=== PATIENT | female | born 1980 | race African-American/Black ===

== ENCOUNTER 2016-11-24 00:24 | Emergency (ER) | payer BC, OTHER ==
--- NOTE | 2016-11-24 02:51 | ER Document Report ---
ED GI/ - General Chief Complaint: Abdominal Pain Stated Complaint: ABDOMINAL PAIN Notes: Patient is a 36-year-old female that comes emergency department for chief complaint of discomfort in the vaginal region with discharge, she states that she feels like she got a yeast infection but she took 2 separate doses of Diflucan, patient was on antibiotics before taking the Diflucan. Patient is sexually active. She also states she has burning and discomfort with urination. Patient states she felt like she had chills earlier and she felt lightheaded when she stood. She denies dizziness, syncope, vomiting, flank pain. Patient has had a partial hysterectomy secondary to fibroids. TRAVEL OUTSIDE OF THE [place] IN LAST 30 DAYS: No - Related Data Allergies/Adverse Reactions: prednisone [Prednisone] Allergy (Verified 11/24/16 01:38) Sulfa (Sulfonamide Antibiotics) Allergy (Verified 11/24/16 01:38) rash around mouth Past Medical History - General Information source: Patient - Social History Smoking Status: Never Smoker Frequency of alcohol use: None Drug Abuse: None Lives with: Family Family History: Reviewed & Not Pertinent - Past Medical History Cardiac Medical History: Reports: Hx Heart Attack - 2004, Hx Hypertension Denies: Hx Atrial Fibrillation, Hx Congestive Heart Failure, Hx Coronary Artery Disease, Hx Hypercholesterolemia, Hx Peripheral Vascular Disease Neurological Medical History: Reports: Hx Cerebrovascular Accident - CVA 2014. Denies: Hx Seizures Endocrine Medical History: Renal/ Medical History: Denies: Hx Ectopic , Hx Ovarian Cysts, Hx Peritoneal Dialysis, Hx Pelvic Inflammatory Disease Malignancy Medical History: Denies: Hx Breast Cancer, Hx Cervical Cancer, Hx Leukemia, Hx Ovarian Cancer GI Medical History: Denies: Hx Crohn's Disease, Hx Gastroesophageal Reflux Disease, Hx Hiatal Hernia, Hx Irritable Bowel, Hx Liver Failure, Hx Ulcer Musculoskeltal Medical History: Denies Hx Multiple Sclerosis Skin Medical History: Denies Hx Eczema, Denies Hx MRSA Psychiatric Medical History: Denies: Hx Dementia Infectious Medical History: Denies: Hx HIV Past Surgical History: Reports: Hx Cardiac Catheterization, Hx Section - x1, Hx Hysterectomy. Denies: Hx Appendectomy, Hx Bowel Surgery, Hx Cholecystectomy, Hx Colostomy, Hx Coronary Artery Bypass Graft, Hx Gastric Bypass Surgery, Hx Herniorrhaphy, Hx Mastectomy, Hx Pacemaker, Hx Tonsillectomy , Hx Tubal Ligation - Immunizations Immunizations up to date: Yes Hx Diphtheria, Pertussis, Tetanus Vaccination: No Review of Systems - Review of Systems Constitutional: No symptoms reported EENT: No symptoms reported Cardiovascular: No symptoms reported Respiratory: No symptoms reported Gastrointestinal: No symptoms reported Genitourinary: See HPI Female Genitourinary: See HPI Musculoskeletal: No symptoms reported Skin: No symptoms reported Hematologic/Lymphatic: No symptoms reported Neurological/Psychological: No symptoms reported Physical Exam - Vital signs Vitals: Temp Pulse Resp BP Pulse Ox 98.6 F 84 18 155/86 H 99 11/24/16 05:58 11/24/16 05:58 11/24/16 05:58 11/24/16 05:58 11/24/16 05:58 Interpretation: Normal - General General appearance: Appears well, Alert In distress: None - HEENT Head: Normocephalic, Atraumatic Eyes: Normal Conjunctiva: Normal Extraocular movements intact: Yes Eyelashes: Normal Pupils: PERRL Nasal: Normal Mouth/Lips: Normal Mucous membranes: Normal Pharynx: Normal Neck: Normal - Respiratory Respiratory status: No respiratory distress Chest status: Nontender Breath sounds: Normal. No: Decreased air movement, Wheezing Chest palpation: Normal - Cardiovascular Rhythm: Regular. No: Tachycardia Heart sounds: Normal auscultation, S1 appreciated, S2 appreciated Murmur: No - Abdominal Inspection: Normal Distension: No distension Bowel sounds: Normal Tenderness: Nontender. No: Tender, Guarding Organomegaly: No organomegaly - Genitourinary External exam: Normal. No: Lesions, Laceration, Bruising, Vesicles Speculum exam: Cervix closed, Vaginal discharge - Moderate amount of whitish vaginal discharge. No: Cervix open Vaginal bleeding: None Bimanuel exam: No: Cervical motion tender - Back Back: Normal, Nontender. No: Tender, CVA tenderness - Extremities General upper extremity: Normal inspection, Nontender, Normal color, Normal ROM , Normal temperature General lower extremity: Normal inspection, Nontender, Normal color, Normal ROM , Normal temperature, Normal weight bearing. No: Bruno's sign - Neurological Neuro grossly intact: Yes Cognition: Normal Orientation: AAOx4 [place] Coma Scale Eye Opening: Spontaneous Yodit Coma Scale Verbal: Oriented Yodit Coma Scale Motor: Obeys Commands Yodit Coma Scale Total: 15 Speech: Normal Motor strength normal: LUE, RUE, LLE, RLE Sensory: Normal - Psychological Associated symptoms: Normal affect, Normal mood - Skin Skin Temperature: Warm Skin Moisture: Dry Skin Color: Normal Course - Re-evaluation Re-evalutation: CBC shows no anemia or leukocytosis. Patient is afebrile, soft and benign abdomen. There is a vaginal discharge which is white in appearance on examination, wet mount consistent with bacterial vaginosis, urine shows large leukocyte esterase with white blood cells, patient complaining of dysuria. Treating for both urinary tract infection and bacterial vaginosis, workup and examination otherwise unremarkable. - Vital Signs Vital signs: Temp Pulse Resp BP Pulse Ox 98.6 F 84 18 155/86 H 99 11/24/16 05:58 11/24/16 05:58 11/24/16 05:58 11/24/16 05:58 11/24/16 05:58 - Laboratory Result Diagrams: 11/24/16 02:35 Laboratory results interpreted by me: 11/24/16 11/24/16 02:35 03:35 Monocytes % 15.3 H Ur Leukocyte Esterase LARGE H Urine Ascorbic Acid 40 H Discharge - Discharge Clinical Impression: Dysuria, Vaginal discharge, Pelvic pain Condition: Stable Disposition: HOME, SELF-CARE Additional Instructions: Workup shows both urinary tract infection and bacterial vaginosis. Take Flagyl and Keflex as directed, afterwards take the Diflucan to avoid a yeast infection. Follow-up with primary care. Return to the emergency department for any concerning symptoms. Prescriptions: Cephalexin Monohydrate [Keflex 500 mg Capsule] 500 mg PO BID #10 capsule Fluconazole [Diflucan] 150 mg PO ONCE PRN #1 tablet PRN Reason: Metronidazole [Flagyl 500 mg Tablet] 500 mg PO BID #14 tablet Forms: Return to Work, Elevated Blood Pressure
[2016-11-24 03:51] LABS: ABSOLUTE EOSINOPHILS # (AUTO) 0.2 10^3/uL (0.0-0.6); ABSOLUTE LYMPHOCYTES (AUTO) 1.1 10^3/uL (0.5-4.7); ABSOLUTE MONOCYTES (AUTO) 0.9 10^3/uL (0.1-1.4); ABSOLUTE NEUT (AUTO) 3.5 10^3/uL (1.7-8.2); BASOPHILS % (AUTO) 0.6 % (0-2); EOSINOPHILS % (AUTO) 2.9 % (0-6); HEMATOCRIT 40.2 % (36.0-47.0); HGB HCT DIFFERENCE 1.8; LYMPHOCYTES % (AUTO) 19.5 % (13-45); MEAN CORPUSCULAR HEMOGLOBIN 29.4 pg (27.0-33.4); MEAN CORPUSCULAR HGB CONC 34.8 g/dL (32.0-36.0); MEAN CORPUSCULAR VOLUME 85 fl (80-97); MONOCYTES % (AUTO) 15.3 % (3-13); RED BLOOD COUNT 4.75 10^6/uL (3.72-5.28); RED CELL DISTRIBUTION WIDTH 13.4 % (11.5-14.0); SEGMENTED NEUTROPHILS % (AUTO) 61.7 % (42-78); WHITE BLOOD COUNT 5.6 10^3/uL (4.0-10.5)
[2016-11-24 04:51] LABS: APPEARANCE,URINE SLIGHTLY-CLOUDY; BILIRUBIN,URINE NEGATIVE (NEGATIVE); GLUCOSE, URINE NEGATIVE (NEGATIVE); KETONES,URINE NEGATIVE (NEGATIVE); LEUKOCYTE ESTERASE,URINE LARGE (NEGATIVE); NITRITE,URINE NEGATIVE (NEGATIVE); PROTEIN,URINE NEGATIVE (NEGATIVE); URINE SPECIFIC GRAVITY 1.017; UROBILINOGEN,URINE NEGATIVE mg/dL (<2.0)
[2016-11-24] MEDS ORDERED: CEPHALEXIN 500 MG CAPSULE PO ONE (05:16)
[2016-11-24] MEDS ORDERED: METRONIDAZOLE 500 MG TABLET PO ONE (05:16)
[2016-11-24 06:00] VITALS: BP 155/86
[2016-11-24 06:47] LABS: CHLAM PCR NOT DETECTED (NOT DETECT)
== END 2016-11-24 05:59 | disposition home or self-care (01) ==
LOC: ER 00:24
DX: R30.0 Dysuria (principal); N89.8 Other specified noninflammatory disorders of vagina; R10.2 Pelvic and perineal pain; R10.9 Unspecified abdominal pain
CPT/HCPCS: 36415; 81001; 85025; 87086; 87210; 87491; 87591; 99283

== ENCOUNTER 2017-01-12 08:29 | Emergency (ER) | payer BC ==
[2017-01-12 08:35] VITALS: BP 129/65
--- NOTE | 2017-01-12 08:53 | ER Document Report ---
HPI - HPI Patient complains to provider of: left ear pain Onset: Other - 1.5 weeks Onset/Duration: Persistent Quality of pain: Achy Severity: Severe Pain Level: 4 Context: Patient presents to the emergency department with complaints of left ear pain for the past week and half. She reports she was recently treated for an ear infection in October. She reports the ear felt better but didn't completely go away. She reports that she works at [employer] and wears headphones. She cleans the headphones before she wears them. She denies other symptoms such as fever vomiting diarrhea. She reports she's tried cleaning her ear with peroxide and warm water. She also cleaned her ear with Q-tips. Associated Symptoms: None Exacerbated by: Other - pressure Relieved by: Denies Similar symptoms previously: Yes Recently seen / treated by doctor: Yes - REPRODUCTIVE LMP: - Hysterectomy Reproductive: DENIES: : - DERM Skin Color: Normal Past Medical History - General Information source: Patient Last Menstrual Period: hyst - Social History Smoking Status: Unknown if Ever Smoked Cigarette use (# per day): No Frequency of alcohol use: Social Drug Abuse: None Occupation: [employer] Family History: Reviewed & Not Pertinent Patient has suicidal ideation: No Patient has homicidal ideation: No - Past Medical History Cardiac Medical History: Reports: Hx Heart Attack - 2004, Hx Hypertension, Hx Heart Murmur - Unsure Denies: Hx Atrial Fibrillation, Hx Congestive Heart Failure, Hx Coronary Artery Disease, Hx Hypercholesterolemia, Hx Peripheral Vascular Disease Neurological Medical History: Reports: Hx Cerebrovascular Accident - CVA 2014. Denies: Hx Seizures Endocrine Medical History: Renal/ Medical History: Denies: Hx Ectopic , Hx Ovarian Cysts, Hx Peritoneal Dialysis, Hx Pelvic Inflammatory Disease Malignancy Medical History: Denies: Hx Breast Cancer, Hx Cervical Cancer, Hx Leukemia, Hx Ovarian Cancer GI Medical History: Denies: Hx Crohn's Disease, Hx Gastroesophageal Reflux Disease, Hx Hiatal Hernia, Hx Irritable Bowel, Hx Liver Failure, Hx Ulcer Musculoskeltal Medical History: Denies Hx Multiple Sclerosis Skin Medical History: Denies Hx Eczema, Denies Hx MRSA Psychiatric Medical History: Denies: Hx Dementia Infectious Medical History: Denies: Hx HIV Past Surgical History: Reports: Hx Cardiac Catheterization, Hx Section - x1, Hx Hysterectomy. Denies: Hx Appendectomy, Hx Bowel Surgery, Hx Cholecystectomy, Hx Colostomy, Hx Coronary Artery Bypass Graft, Hx Gastric Bypass Surgery, Hx Herniorrhaphy, Hx Mastectomy, Hx Pacemaker, Hx Tonsillectomy , Hx Tubal Ligation - Immunizations Immunizations up to date: Yes Hx Diphtheria, Pertussis, Tetanus Vaccination: No Vertical Provider Document - CONSTITUTIONAL Agree With Documented VS: Yes Exam Limitations: No Limitations General Appearance: WD/WN, No Apparent Distress - INFECTION CONTROL TRAVEL OUTSIDE OF THE [place] IN LAST 30 DAYS: No - HEENT HEENT: Atraumatic, Normocephalic, Tympanic Membrane Red - left. negative: Conjuctival Injection, Pharyngeal Exudate, Pharyngeal Erythema, Tympanic Membrane Bulging - NECK Neck: Normal Inspection, Supple. negative: Lymphadenopathy-Left, Lymphadenopathy-Right - RESPIRATORY Respiratory: Breath Sounds Normal, No Respiratory Distress O2 Sat by Pulse Oximetry: 99 - CARDIOVASCULAR Cardiovascular: Regular Rate - MUSCULOSKELETAL/EXTREMETIES Musculoskeletal/Extremeties: MAEW, FROM - NEURO Level of Consciousness: Awake, Alert, Appropriate Motor/Sensory: No Motor Deficit - DERM Integumentary: Warm, Dry Course - Re-evaluation Re-evalutation: 01/12/17 08:54 Patient reports she gets yeast infections after she takes antibiotics. Patient instructed on Augmentin and Diflucan. Patient requested Diflucan due to past history of yeast infections with antibiotics. Patient was also instructed to follow-up with Dr. Stein for recheck of the ear within one week. - Vital Signs Vital signs: Temp Pulse Resp BP Pulse Ox 98.3 F 76 16 129/65 H 99 01/12/17 08:32 01/12/17 08:32 01/12/17 08:32 01/12/17 08:32 01/12/17 08:32 Discharge - Discharge Clinical Impression: Ear pain, left, Elevated blood pressure reading Otitis media Qualifiers: Otitis media type: unspecified Laterality: left Chronicity: acute Condition: Stable Disposition: HOME, SELF-CARE Instructions: Fluconazole ([facility]), Augmentin ([facility]), Otitis Media ([facility]), Use of [id number] Ibuprofen ([facility]) Additional Instructions: *You have been evaluated for ear pain, otitis media *Take medication as prescribed *Follow up with Dr Delacruz within one week for recheck *Return to ED for worsening condition, changes, needs Monitor your blood pressure. Your blood pressure was elevated today. This may be because you were anxious, in pain or because you need medication. It is important to follow up with your primary care provider for full evaluation. Prescriptions: Amoxicillin/Potassium Clav [Augmentin 875-125 Tablet] 1 each PO BID #20 tablet Fluconazole [Diflucan] 150 mg PO ONCE PRN #1 tablet PRN Reason: Forms: Elevated Blood Pressure, Return to Work Referrals: KENNY STEIN DO [Primary Care Provider] - Follow up as needed
== END 2017-01-12 09:00 | disposition home or self-care (01) ==
LOC: ER 08:29
DX: H66.92 Otitis media, unspecified, left ear (principal); H92.02 Otalgia, left ear; R03.0 Elevated blood-pressure reading, without diagnosis of hypertension
CPT/HCPCS: 99282

== ENCOUNTER 2017-05-01 09:06 | Emergency (ER) | payer BC ==
[2017-05-01 09:16] VITALS: BP 118/58
--- NOTE | 2017-05-01 09:38 | ER Document Report ---
HPI - HPI Pain Level: 2 Context: 37 yo female c/o sore, scratchy throat, post nasal drip x 1 week Associated Symptoms: Nonproductive cough, Hoarseness, Rhinnorhea, Sinus pain/ drainage, Sore throat. denies: Body/muscle aches, Chest pain, Chills, Hurts to breath, Shortness of breath Exacerbated by: Denies Relieved by: Denies - ROS Systems Reviewed and Negative: Yes All other systems reviewed and negative - EENT EENT: REPORTS: Sore Throat - REPRODUCTIVE Reproductive: DENIES: : - DERM Skin Color: Normal Past Medical History - General Information source: Patient - Social History Smoking Status: Current Every Day Smoker Frequency of alcohol use: None Drug Abuse: None Lives with: Family Family History: Reviewed & Not Pertinent - Past Medical History Cardiac Medical History: Reports: Hx Heart Attack - 2004, Hx Hypertension, Hx Heart Murmur - Unsure Denies: Hx Atrial Fibrillation, Hx Congestive Heart Failure, Hx Coronary Artery Disease, Hx Hypercholesterolemia, Hx Peripheral Vascular Disease Neurological Medical History: Reports: Hx Cerebrovascular Accident - CVA 2014. Denies: Hx Seizures Endocrine Medical History: Renal/ Medical History: Denies: Hx Ectopic , Hx Ovarian Cysts, Hx Peritoneal Dialysis, Hx Pelvic Inflammatory Disease Malignancy Medical History: Denies: Hx Breast Cancer, Hx Cervical Cancer, Hx Leukemia, Hx Ovarian Cancer GI Medical History: Denies: Hx Crohn's Disease, Hx Gastroesophageal Reflux Disease, Hx Hiatal Hernia, Hx Irritable Bowel, Hx Liver Failure, Hx Ulcer Musculoskeltal Medical History: Denies Hx Multiple Sclerosis Skin Medical History: Denies Hx Eczema, Denies Hx MRSA Psychiatric Medical History: Denies: Hx Dementia Infectious Medical History: Denies: Hx HIV Past Surgical History: Reports: Hx Cardiac Catheterization, Hx Section - x1, Hx Hysterectomy. Denies: Hx Appendectomy, Hx Bowel Surgery, Hx Cholecystectomy, Hx Colostomy, Hx Coronary Artery Bypass Graft, Hx Gastric Bypass Surgery, Hx Herniorrhaphy, Hx Mastectomy, Hx Pacemaker, Hx Tonsillectomy , Hx Tubal Ligation - Immunizations Immunizations up to date: Yes Hx Diphtheria, Pertussis, Tetanus Vaccination: No Vertical Provider Document - CONSTITUTIONAL Agree With Documented VS: Yes Exam Limitations: No Limitations - INFECTION CONTROL TRAVEL OUTSIDE OF THE [place] IN LAST 30 DAYS: No - HEENT HEENT: Atraumatic, PERRLA, Pharyngeal Tenderness, Pharyngeal Erythema. negative : Pharyngeal Exudate, Tympanic Membrane Red, Tympanic Membrane Bulging - NECK Neck: Normal Inspection, Supple - RESPIRATORY Respiratory: Breath Sounds Normal, No Respiratory Distress O2 Sat by Pulse Oximetry: 97 - CARDIOVASCULAR Cardiovascular: Regular Rate, Regular Rhythm - GI/ABDOMEN Gastrointestinal: Abdomen Soft - MUSCULOSKELETAL/EXTREMETIES Musculoskeletal/Extremeties: MASHA FROM - NEURO Level of Consciousness: Awake, Alert, Appropriate - DERM Integumentary: Warm, Dry, No Rash Course - Re-evaluation Re-evalutation: 05/01/17 09:35 H&P c/w post nasal drip. no s/s ludwigs, peritonsillar abscess. no airway compromise. pt stable for discharge - Vital Signs Vital signs: Temp Pulse Resp BP Pulse Ox 98.5 F 65 18 118/58 L 97 05/01/17 09:14 05/01/17 09:14 05/01/17 09:14 05/01/17 09:14 05/01/17 09:14 Discharge - Discharge Clinical Impression: Post-nasal drip URI (upper respiratory infection) Qualifiers: URI type: unspecified viral URI Qualified Code(s): J06.9 - Acute upper respiratory infection, unspecified; B97.89 - Other viral agents as the cause of diseases classified elsewhere Disposition: HOME, SELF-CARE Instructions: Acetaminophen, Sore Throat ([facility]), Upper Respiratory Illness ([facility]) Additional Instructions: You have a cold with post nasal drip which is causing your symptoms No antibiotics are indicated today, You have nothing infected Recommend OTC Coricidin HBP to help dry the drainage which is causing your cough and sore throat Lozenges, salt water gargles Follow up with your primary care if symptoms persist or worsen
== END 2017-05-01 09:52 | disposition home or self-care (01) ==
LOC: ER 09:06
DX: J06.9 Acute upper respiratory infection, unspecified (principal); B97.89 Other viral agents as the cause of diseases classified elsewhere; R09.82 Postnasal drip; R05 Cough; J34.89 Other specified disorders of nose and nasal sinuses; R49.0 Dysphonia; I25.2 Old myocardial infarction; I10 Essential (primary) hypertension; F17.200 Nicotine dependence, unspecified, uncomplicated
CPT/HCPCS: 99282

== ENCOUNTER 2017-06-04 07:56 | Emergency (ER) | payer BC ==
--- NOTE | 2017-06-04 08:43 | ER Document Report ---
ED General - General Mode of Arrival: Ambulatory Information source: Patient TRAVEL OUTSIDE OF THE [place] IN LAST 30 DAYS: No <LOULOU GODINEZ - Last Filed: 06/04/17 08:44> <MERE RODRÍGUEZ - Last Filed: 06/04/17 12:43> - General Chief Complaint: Chest Pain Stated Complaint: CHEST PAIN Time Seen by Provider: 06/04/17 08:30 Notes: Patient is a 37-year-old female who presents to the emergency department today with complaints of right sided abdominal numbness. Patient had a CVA in September 2014 and she states during that, she had full right-sided body numbness. Patient states she has also had chest pain that "comes and goes" for the last 2 days. Patient had an PR in 2004 with subsequent catheterization with no stent placed. Patient states she has been constipated over the last few days but this is normal for her. Patient has no neurological deficits. ( LOULOU GODINEZ) - Related Data Allergies/Adverse Reactions: prednisone [Prednisone] Allergy (Verified 06/04/17 08:06) Sulfa (Sulfonamide Antibiotics) Allergy (Verified 06/04/17 08:06) rash around mouth Home Medications: Current Home Medications Clonidine HCl [Catapres 0.1 mg Tablet] 0.1 mg PO Q12HP PRN 06/04/17 [History] Metoprolol Tartrate [Lopressor 100 mg Tablet] 100 mg PO Q12 06/04/17 [History] Naproxen 500 mg PO Q12 06/04/17 [History] Phentermine HCl [Adipex-P] 37.5 mg PO QAM 06/04/17 [History] Torsemide [Demadex] 20 mg PO DAILY 06/04/17 [History] Zolpidem Tartrate [Ambien] 10 mg PO QHS 06/04/17 [History] Past Medical History - General Information source: Patient - Social History Smoking Status: Never Smoker Cigarette use (# per day): No Chew tobacco use (# tins/day): No Frequency of alcohol use: Occasional Drug Abuse: None Lives with: Family Family History: Reviewed & Not Pertinent Patient has suicidal ideation: No - Past Medical History Cardiac Medical History: Reports: Hx Heart Attack - 2004, Hx Hypertension Neurological Medical History: Reports: Hx Cerebrovascular Accident - CVA Oct 14 Endocrine Medical History: Past Surgical History: Reports: Hx Cardiac Catheterization, Hx Section - x1, Hx Hysterectomy - Immunizations Immunizations up to date: Yes Hx Diphtheria, Pertussis, Tetanus Vaccination: No <LOULOU GODINEZ - Last Filed: 06/04/17 08:44> Review of Systems - Review of Systems Constitutional: No symptoms reported EENT: No symptoms reported Cardiovascular: See HPI, Chest pain Respiratory: No symptoms reported Gastrointestinal: No symptoms reported Genitourinary: No symptoms reported Female Genitourinary: No symptoms reported Musculoskeletal: No symptoms reported Skin: No symptoms reported Hematologic/Lymphatic: No symptoms reported Neurological/Psychological: See HPI, Numbness - right abdominal numbness -: Yes All other systems reviewed and negative <LOULOU GODINEZ - Last Filed: 06/04/17 08:44> Physical Exam - Vital signs Interpretation: Normal - General General appearance: Appears well, Alert - HEENT Head: Normocephalic, Atraumatic Eyes: Normal Pupils: PERRL Neck: No: Carotid bruit - Respiratory Respiratory status: No respiratory distress Chest status: Nontender - no anterior chest wall tenderness with palpation Breath sounds: Normal Chest palpation: Normal - Cardiovascular Rhythm: Regular Heart sounds: Normal auscultation Murmur: No - Abdominal Inspection: Normal Distension: No distension Bowel sounds: Normal Tenderness: Nontender Organomegaly: No organomegaly - Back Back: Normal, Nontender - Extremities General upper extremity: Normal inspection, Normal ROM. No: Edema General lower extremity: Normal inspection, Normal ROM. No: Edema - Neurological Neuro grossly intact: Yes Cognition: Normal Orientation: AAOx4 [place] Coma Scale Eye Opening: Spontaneous Yodit Coma Scale Verbal: Oriented [place] Coma Scale Motor: Obeys Commands Yodit Coma Scale Total: 15 Speech: Normal Motor strength normal: LUE, RUE, LLE, RLE Sensory: Normal - Psychological Associated symptoms: Normal affect, Normal mood - Skin Skin Temperature: Warm Skin Moisture: Dry Skin Color: Normal <LOULOU GODINEZ - Last Filed: 06/04/17 08:44> <MERE RODRÍGUEZ - Last Filed: 06/04/17 12:43> - Vital signs Vitals: Temp Pulse Resp BP Pulse Ox 98.6 F 97 16 136/84 H 97 06/04/17 08:11 06/04/17 08:11 06/04/17 08:11 06/04/17 08:11 06/04/17 08:11 - Neurological Notes: Complains of numbness to left abdomen. No motor, sensory, or cognitive deficits. 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 EKG does not show acute ischemic change compared to previous EKGs. Cardiac enzymes are normal. (MERE RODRÍGUEZ) - Vital Signs Vital signs: Temp Pulse Resp BP Pulse Ox 98.6 F 97 17 148/70 H 97 06/04/17 08:11 06/04/17 08:11 06/04/17 08:28 06/04/17 08:25 06/04/17 08:11 - Laboratory Laboratory results interpreted by me: 06/04/17 06/04/17 06/04/17 08:35 08:35 10:24 Band Neutrophils % 1 L Potassium 2.9 L* Chloride 97 L Carbon Dioxide 31 H BUN 25 H Est GFR (Non-Af Amer) 51 L Glucose 115 H Creatine Kinase 187 H Total Protein 8.5 H Urine Protein 30 H Urine Blood LARGE H Ur Leukocyte Esterase TRACE H Urine Ascorbic Acid 20 H Discharge <LOULOU GODINEZ - Last Filed: 06/04/17 08:44> <MERE RODRÍGUEZ - Last Filed: 06/04/17 12:43> - Discharge Clinical Impression: Numbness on right side Chest pain Qualifiers: Chest pain type: unspecified Qualified Code(s): R07.9 - Chest pain, unspecified Condition: Stable Disposition: HOME, SELF-CARE Additional Instructions: Chest Pain of Unclear Cause: The exact cause of your chest pain isn't clear. Fortunately, there is no evidence of a dangerous medical condition. Further testing may be required to find the source of the pain. Most often, we find that this pain is coming from the chest wall -- the muscles or rib joints in the chest. But chest pain can come from the lung and lung lining, the esophagus, the heart valves or heart lining, and even the stomach or gallbladder. Rest. Eat lightly until the pain is gone. We may prescribe medicine for pain and inflammation. You should call the physician immediately if the pain radiates to the shoulder, jaw or arms; if you start to run a fever or develop a cough; or if you develop shortness of breath, or other new or alarming symptoms. Numbness: The MRI of your brain did not show a new stroke. There were no new abnormalities to explain the intermittent migratory numbness you are feeling on the right side. Follow-up with your doctor this week for recheck of your symptoms. RETURN TO THE EMERGENCY ROOM IF ANY NEW OR WORSENING SYMPTOMS. Referrals: KENNY PEACOCK, [Primary Care Provider] - Follow up in 3-5 days Scribe Attestation: 06/04/17 10:32 I personally performed the services described in the documentation, reviewed and edited the documentation which was dictated to the scribe in my presence, and it accurately records my words and actions. (MERE RODRÍGUEZ) Scribe Documentation - Scribe Written by Darell:: Darell Messina, 06/04/2017 [id number] acting as scribe for :: Pauline <LOULOU GODINEZ - Last Filed: 06/04/17 08:44>
[2017-06-04 08:55] LABS: HEMATOCRIT 39.9 % (36.0-47.0); HGB HCT DIFFERENCE 2.1; MEAN CORPUSCULAR HEMOGLOBIN 30.1 pg (27.0-33.4); MEAN CORPUSCULAR HGB CONC 35.1 g/dL (32.0-36.0); MEAN CORPUSCULAR VOLUME 86 fl (80-97); RED BLOOD COUNT 4.64 10^6/uL (3.72-5.28); WHITE BLOOD COUNT 4.4 10^3/uL (4.0-10.5)
--- NOTE | 2017-06-04 09:07 | RADIOLOGY REPORT (SQ) ---
EXAM DESCRIPTION: KUB/ABDOMEN (SINGLE VIEW) COMPLETED DATE/TIME: 06/04/2017 8:58 am REASON FOR STUDY: constipation COMPARISON: Abdominal ultrasound 2008 NUMBER OF VIEWS: One view. TECHNIQUE: Supine radiographic image of the abdomen acquired. LIMITATIONS: None. FINDINGS: BOWEL GAS PATTERN: Normal bowel gas pattern. No dilated loops. Moderate stool in the asce nding colon. No definite constipation CALCIFICATIONS: No suspicious calcifications. SOFT TISSUES: No gross mass or suggestion of organomegaly. HARDWARE: None in the abdomen. BONES: No acute fracture. No worrisome bone lesions. OTHER: No other significant finding. IMPRESSION: NO RADIOGRAPHIC EVIDENCE FOR ACUTE ABDOMINAL DISEASE. TECHNICAL DOCUMENTATION: JOB ID: [id number] [employer]- All Rights Reserved
[2017-06-04 09:13] LABS: ALANINE AMINOTRANSFERASE 45 U/L (9-52); ALBUMIN 4.4 g/dL (3.5-5.0); ALKALINE PHOSPHATASE 103 U/L (38-126); ANION GAP 14 (5-19); ASPARTATE AMINO TRANSFERASE 36 U/L (14-36); BILIRUBIN,DIRECT 0.4 mg/dL (0.0-0.4); BILIRUBIN,TOTAL 0.6 mg/dL (0.2-1.3); BLOOD UREA NITROGEN 25 mg/dL (7-20); CALCIUM 9.4 mg/dL (8.4-10.2); CARBON DIOXIDE 31 mmol/L (22-30); CHLORIDE 97 mmol/L (98-107); CREATINE KINASE 187 U/L (30-135); CREATININE RESULT 1.19 mg/dL (0.52-1.25); GLUCOSE 115 mg/dL (75-110); SODIUM 142.4 mmol/L (137-145); TOTAL PROTEIN 8.5 g/dL (6.3-8.2)
[2017-06-04 09:14] LABS: BAND NEUTROPHILS % (MANUAL) 1 % (3-5); BASOPHILS % (MANUAL) 0 % (0-2); EOSINOPHILS % (MANUAL) 1 % (0-6); LYMPHOCYTES % (MANUAL) 18 % (13-45); OVALOCYTES SLIGHT; PLATELET CLUMPS PRESENT; POIKILOCYTOSIS SLIGHT; TOTAL CELLS COUNTED 100; TOXIC GRANULATION SLIGHT; TOXIC VACUOLATION PRESENT
[2017-06-04 09:18] LABS: POTASSIUM 2.9 mmol/L (3.6-5.0)
[2017-06-04] MEDS ORDERED: POTASSIUM CHLORIDE 20 MEQ/15 ML UDCUP PO ONE (09:20)
[2017-06-04 10:49] LABS: APPEARANCE,URINE TURBID; BILIRUBIN,URINE NEGATIVE (NEGATIVE); GLUCOSE, URINE NEGATIVE (NEGATIVE); KETONES,URINE NEGATIVE (NEGATIVE); LEUKOCYTE ESTERASE,URINE TRACE (NEGATIVE); NITRITE,URINE NEGATIVE (NEGATIVE); PROTEIN,URINE 30 mg/dL (NEGATIVE); URINE SPECIFIC GRAVITY 1.016; UROBILINOGEN,URINE NEGATIVE mg/dL (<2.0)
--- NOTE | 2017-06-04 12:08 | RADIOLOGY REPORT (SQ) ---
EXAM DESCRIPTION: MRI HEAD WITHOUT COMPLETED DATE/TIME: 06/04/2017 11:46 am REASON FOR STUDY: Right side numbness, prior CVA w/ same symptoms COMPARISON: CT brain 03/03/2008, 01/26/2012, 10/02/2014, 10/22/2014 MRI brain 10/22/2014 TECHNIQUE: Multiplanar imaging includes non-contrasted T1, T2, FLAIR, and diffusion with ADC map seq uences. Images stored on PACS. LIMITATIONS: None. FINDINGS: ANATOMY: No developmental anomalies. Normal vascular flow voids. Pituitary fossa normal. CSF SPACES: Normal in size and contour. No hemorrhage. CEREBRUM: Old lacunar infarct left thalamus in the same location as acute ischemic change on MRI brai n 10/22/2014. Single punctate focus of left frontal deep periventricular white matter high-signal on FLAIR/ T2 from chronic white matter disease or minimal gliosis along perivascular spaces. This is unchanged from . No MR evidence of acute ischemic change, acute intracranial hemorrhage, mass effect, or midline shift . POSTERIOR FOSSA: No signal alteration. No hemorrhage. No edema, masses or mass effect. Internal marilyn tory canals, cerebello-pontine angles, mastoids normal. DIFFUSION IMAGING: Negative for acute or sub-acute infarction. ORBITS: No masses. Globes normal. PARANASAL SINUSES: No fluid levels. Mucosa normal. OTHER: No other significant finding. IMPRESSION: Old left alignment lacunar infarct. Otherwise unremarkable study. EVIDENCE OF ACUTE STROKE: NO. TECHNICAL DOCUMENTATION: JOB ID: [id number] [employer]- All Rights Reserved
--- NOTE | 2017-06-04 12:46 | EKG REPORT ---
SEVERITY:- ABNORMAL ECG - SINUS RHYTHM REPOL ABNRM SUGGESTS ISCHEMIA,BRENDA LATERAL LEADS : Confirmed by: Oscar Young MD 04-Jun-2017 12:46:26
[2017-06-04 12:50] VITALS: BP 138/78
== END 2017-06-04 12:50 | disposition home or self-care (01) ==
LOC: ER 07:56
DX: R20.0 Anesthesia of skin (principal); R07.9 Chest pain, unspecified; I10 Essential (primary) hypertension; Z88.2 Allergy status to sulfonamides; Z86.73 Personal history of transient ischemic attack (TIA), and cerebral infarction without residual deficits; Z90.710 Acquired absence of both cervix and uterus; I25.2 Old myocardial infarction
CPT/HCPCS: 36415; 70551; 74000; 80053; 81001; 82550; 84484; 85025; 93005; 93010; 99285